=== PATIENT | male | born 1975 | race Caucasian/White ===

== ENCOUNTER 2024-04-16 11:49 | Emergency (ER) | payer OTHER ==
[2024-04-16] MEDS: Acetaminophen/HYDROcodone 325-10 MG Tab PO ONE (13:13)
== END 2024-04-16 15:17 | disposition home or self-care (01) ==
LOC: JD.ED 11:49
DX: N50.811 Right testicular pain (principal)
CPT/HCPCS: 76870; 93975; 99284; A9270; 99283

== ENCOUNTER 2025-05-06 14:12 | Emergency (ER) | payer OTHER ==
[2025-05-06 15:12] LABS: BASOPHILS ABSOLUTE AUTO 0.1 K/mm3 (0.0-0.2); BASOPHILS PERCENT AUTO 0.3 % (0.0-1.0); EOSINOPHILS ABSOLUTE AUTO 0.0 K/mm3 (0.0-0.4); EOSINOPHILS PERCENT AUTO 0.1 % (0.0-6.0); IMMATURE GRAN ABSOLUTE AUTO 0.13 K/mm3 (0.00-0.05); IMMATURE GRAN PERCENT AUTO 0.9 % (0.0-0.4); LYMPHOCYTES ABSOLUTE AUTO 1.4 K/mm3 (1.0-4.8); LYMPHOCYTES PERCENT AUTO 9.8 % (24.0-44.0); MEAN PLATELET VOLUME 9.2 fl (9.4-12.4); MONOCYTES ABSOLUTE AUTO 1.3 K/mm3 (0.0-0.8); MONOCYTES PERCENT AUTO 8.9 % (0.0-8.0); NEUTROPHILS ABSOLUTE AUTO 11.5 K/mm3 (1.8-7.7); NEUTROPHILS PERCENT AUTO 80.0 % (41.0-71.0); NRBC ABSOLUTE 0.00 (0.00-0.02); NRBC PERCENT 0.0 % (0.0-0.2); PLATELET COUNT,PLT 225 K/mm3 (150-400); RED BLOOD CELL COUNT 5.97 M/mm3 (4.52-5.90); WHITE BLOOD CELL COUNT,WBC 14.34 K/mm3 (3.9-11.3)
[2025-05-06 15:21] LABS: INR 0.94
[2025-05-06 15:23] LABS: PTT,PARTIAL THROMBOPLSTIN TIME 25.0 SECONDS (21.7-31.4)
[2025-05-06 15:31] LABS: D-DIMER QUANTITATIVE 2.02 mg/L (0.19-0.50)
[2025-05-06 15:32] LABS: A/G RATIO 1.0 (1-2); ALANINE AMINOTRANSFERASE,ALT 47.0 U/L (16-63); ASPARTATE AMNIOTRANSFERASE,AST 30.0 U/L (15-37); BILIRUBIN TOTAL 1.7 mg/dL (0.2-1.0); BLOOD UREA NITROGEN,BUN 60.0 mg/dL (7-18); CARBON DIOXIDE,CO2 20.0 mEq/L (21-32); CHLORIDE,CL 94.0 mEq/L (98-107); CREATININE 1.9 mg/dL (0.7-1.3); EST CRCL DRUG DOSING (CG) 50.64 mL/min; ESTIMATED GFR 43.0 mL/min (>60); PROTEIN TOTAL,TP 7.5 g/dl (6.4-8.2); SODIUM,NA 127.0 mEq/L (136-145); TROPONIN I HIGH SENSITIVITY 21.0 pg/mL (<=76)
[2025-05-06 15:46] LABS: GLUCOSE RANDOM 425.0 mg/dL (70-99); POTASSIUM,K 4.8 mEq/L (3.5-5.1)
[2025-05-06] MEDS ORDERED: Iopamidol 755 Mg/ML 100 ML Bottle IVPUSH ONE (16:07)
[2025-05-06] MEDS: Sodium Chloride 0.9% 10 ML Syringe FLUSH ONE (16:13)
[2025-05-06 17:20] LABS: PCO2 VENOUS 42.0 mmHg (41-51); PH,VENOUS 7.38 (7.30-7.40); PO2 VENOUS 47.0 mmHG (40-80)
[2025-05-06 17:21] LABS: BASE EXCESS VENOUS -0.5 (-4.0-2.0); BICARBONATE,VENOUS 24.8 meq/L (22-26); O2 SATURATION VENOUS 74.5
[2025-05-06] MEDS: Insulin Lispro 100 Unit/ML 3 ML KwikPen SUBCUT ONE (17:37)
[2025-05-06 17:53] LABS: LACTIC ACID 1.7 mmol/L (0.4-2.0)
== END 2025-05-06 19:20 | disposition home or self-care (01) ==
LOC: JD.ED 14:12
DX: R07.89 Other chest pain (principal); R06.02 Shortness of breath; D72.829 Elevated white blood cell count, unspecified; E11.65 Type 2 diabetes mellitus with hyperglycemia; I10 Essential (primary) hypertension; F17.210 Nicotine dependence, cigarettes, uncomplicated; Z79.4 Long term (current) use of insulin
CPT/HCPCS: 36415; 71045; 71275; 80053; 82010; 82803; 82947; 83605; 83735; 83880; 84484; 85025; 85379; 85610; 85730; 87426; 93005; 96360; 99285; J1815; J7030; 93010; 99284; A9270-GY

== ENCOUNTER 2025-07-25 11:50 | Emergency (ER) | payer OTHER ==
[2025-07-25] MEDS ORDERED: Sodium Chloride 0.9% 10 ML Syringe FLUSH PRN (12:57)
[2025-07-25 13:08] LABS: BASOPHILS ABSOLUTE AUTO 0.1 K/mm3 (0.0-0.2); BASOPHILS PERCENT AUTO 0.7 % (0.0-1.0); EOSINOPHILS ABSOLUTE AUTO 0.1 K/mm3 (0.0-0.4); EOSINOPHILS PERCENT AUTO 0.9 % (0.0-6.0); IMMATURE GRAN ABSOLUTE AUTO 0.02 K/mm3 (0.00-0.05); IMMATURE GRAN PERCENT AUTO 0.2 % (0.0-0.4); LYMPHOCYTES ABSOLUTE AUTO 1.3 K/mm3 (1.0-4.8); LYMPHOCYTES PERCENT AUTO 13.0 % (24.0-44.0); MEAN PLATELET VOLUME 8.8 fl (9.4-12.4); MONOCYTES ABSOLUTE AUTO 1.0 K/mm3 (0.0-0.8); MONOCYTES PERCENT AUTO 9.6 % (0.0-8.0); NEUTROPHILS ABSOLUTE AUTO 7.5 K/mm3 (1.8-7.7); NEUTROPHILS PERCENT AUTO 75.6 % (41.0-71.0); NRBC ABSOLUTE 0.00 (0.00-0.02); NRBC PERCENT 0.0 % (0.0-0.2); PLATELET COUNT,PLT 266 K/mm3 (150-400); RED BLOOD CELL COUNT 5.08 M/mm3 (4.52-5.90); WHITE BLOOD CELL COUNT,WBC 9.88 K/mm3 (3.9-11.3)
[2025-07-25] MEDS: Sodium Chloride 0.9% 10 ML Syringe FLUSH PRN (13:18)
[2025-07-25 13:38] LABS: A/G RATIO 1.1 (1-2); ALANINE AMINOTRANSFERASE,ALT 28.0 U/L (16-63); ASPARTATE AMNIOTRANSFERASE,AST 16.0 U/L (15-37); BILIRUBIN TOTAL 1.1 mg/dL (0.2-1.0); BLOOD UREA NITROGEN,BUN 35.0 mg/dL (7-18); CARBON DIOXIDE,CO2 25.0 mEq/L (21-32); CHLORIDE,CL 97.0 mEq/L (98-107); CREATININE 1.5 mg/dL (0.7-1.3); EST CRCL DRUG DOSING (CG) 64.14 mL/min; ESTIMATED GFR 57.0 mL/min (>60); GLUCOSE RANDOM 260.0 mg/dL (70-99); POTASSIUM,K 4.7 mEq/L (3.5-5.1); PROTEIN TOTAL,TP 7.4 g/dl (6.4-8.2); SODIUM,NA 133.0 mEq/L (136-145)
[2025-07-25] MEDS: Iopamidol 612 MG/ML 100 ML Bottle IVPUSH ONE (13:40)
== END 2025-07-25 16:10 | disposition home or self-care (01) ==
LOC: JD.ED 11:50
DX: E11.621 Type 2 diabetes mellitus with foot ulcer (principal); L97.519 Non-pressure chronic ulcer of other part of right foot with unspecified severity; Z86.16 Personal history of COVID-19
CPT/HCPCS: 36415; 73701; 80053; 82947; 85025; 96360; 99283; J7030; Q9967